=== PATIENT | female | born 1990 | race Caucasian/White ===

== ENCOUNTER → 2018-03-27 15:55 | Outpatient (CLI) | payer BC, SELFPAY ==
[2018-03-27 17:31] LABS: Absolute Lymphocyte Count 1.71 X10^3/ul (0.83-4.51); Absolute Neutrophil Count 7.6 X10^3/uL (2.0-7.7); Basophil# 0.02 X10^3/uL; Basophil% 0.2 % (0-1); Eosinophil# 0.25 X10^3/uL; Eosinophils% 2.5 % (0-5); Hematocrit 38.6 % (37-47); Hemoglobin 13.2 g/dl (12.0-15.0); Lymphocyte # 1.71 X10^3/ul (4.0); Mean Corp Hgb Conc 34.2 g/gl (32-36); Mean Corpuscular Hgb 28.9 pg (27.0-32.0); Mean Corpuscular Volume 84.6 fL (81-99); Monocyte# 0.52 X10^3/uL; Monocyte% 5.2 % (0-10); Neutrophil # 7.55 X10^3/uL (2.7-7.7); Platelet Count 237 K/mm3 (150-450); RBC Distribution Width CV 12.3 % (11.6-14.6); RBC Distribution Width SD 37.8 fl (35.1-43.9); Red Blood Count 4.56 M/mm3 (4.2-5.4); White Blood Count 10.1 K/mm3 (4.4-11.0)
[2018-03-27 17:32] LABS: POSITIVE COUNT NO; POSITIVE DIFFERENTIAL NO; POSITIVE MORPHOLOGY NO
[2018-03-27 17:37] LABS: Color, Urine Yellow (Yellow); Glucose, Dipstick Normal (Normal); Ketone-Dipstick Negative (Negative); Leukocyte Esterase-Dipstick Negative /ul (Negative); Nitrite-Dipstick Negative (Negative); Occult Blood-Urine Negative /ul (Negative); Protein-Dipstick Negative (Negative); Specific Gravity, Urine 1.005 (1.002-1.030); Urine Bilirubin Dipstick Negative (Negative); Urine Clarity Sl. Cloudy (Clear); Urine Urobilinogen Normal (Normal)
[2018-03-27 17:54] LABS: Thyroid Stim Hormone (TSH) 1.54 uIU/mL (0.358-3.74)
[2018-03-27 18:21] LABS: Amphetamine Urine VISTA NEGATIVE (<1000 ng/mL); Barbiturate Urine VISTA NEGATIVE (< 200 ng/mL); Benzodiazepine Urine VISTA NEGATIVE (< 200 ng/mL); Cocaine Urine VISTA NEGATIVE (< 300 ng/mL); Ecstacy Urine VISTA NEGATIVE (< 500 ng/mL); Methadone Urine VISTA NEGATIVE (< 300 ng/mL); PCP Urine VISTA NEGATIVE (< 25 ng/mL); THC Urine VISTA NEGATIVE (< 50 ng/mL); Vista UDS pH Range 6
[2018-03-27 18:46] LABS: HIV - WCH Non-Reactive (Nonreactive); Rubella IgG 149.1 IU/mL
[2018-03-27 19:41] LABS: Chlamydia Trachomatis by PCR Negative (Negative); Neisserai gonorrhoeae by PCR Negative (Negative); Probe Check PASS; Sample Adequacy Control PASS; Specimen Processing Control PASS
[2018-03-29 05:27] LABS: Prenatal RPR NONREACTIVE (NONREACTIVE)
[2018-03-29 08:08] LABS: HEPATITIS B SURFACE AG Negative (Negative); Hep C Antibodies <0.1 s/co ratio (0.0-0.9)
== END ==
PROVIDERS: Visit Provider Obstetrics & Gynecology
DX: Z34.81 Encounter for supervision of other normal pregnancy, first trimester (principal)
CPT/HCPCS: 36415; 80307; 81002; 84443; 85025; 86703; 86762; 86803; 87340; 87491; 87591

== ENCOUNTER → 2018-07-22 08:45 | Outpatient (CLI) | payer BC, SELFPAY ==
[2018-07-22 11:11] LABS: Hematocrit 35.8 % (37-47); Mean Corp Hgb Conc 33.5 g/gl (32-36); Mean Corpuscular Hgb 29.9 pg (27.0-32.0); Mean Corpuscular Volume 89.3 fL (81-99); Mean Platelet Vol. 9.2 fl (6.2-12.0); Platelet Count 233 K/mm3 (150-450); RBC Distribution Width CV 13.2 % (11.6-14.6); RBC Distribution Width SD 42.8 fl (35.1-43.9); Red Blood Count 4.01 M/mm3 (4.2-5.4); White Blood Count 9.3 K/mm3 (4.4-11.0)
[2018-07-22 11:13] LABS: Scan Indicated on CBC? Y/N NO
[2018-07-22 11:14] LABS: Glucose Challenge Gest 1H 50g 137 mg/dL (70-140)
[2018-07-23 11:31] LABS: Hep B Surface Antibodies Reactive (.)
== END ==
PROVIDERS: Visit Provider Obstetrics & Gynecology
DX: Z34.82 Encounter for supervision of other normal pregnancy, second trimester (principal)
CPT/HCPCS: 36415; 82950; 85027; 86706

== ENCOUNTER → 2018-08-12 11:08 | Outpatient (CLI) | payer BC, SELFPAY | PROVIDERS: Visit Provider Obstetrics & Gynecology | DX: R30.0 Dysuria (principal) | CPT/HCPCS: 87086; 87088 ==

== ENCOUNTER → 2018-09-19 10:36 | Outpatient (CLI) | payer BC, SELFPAY | PROVIDERS: Visit Provider Obstetrics & Gynecology | DX: Z36.85 Encounter for antenatal screening for Streptococcus B (principal) | CPT/HCPCS: 87081 ==

== ENCOUNTER 2018-10-16 19:17 | Inpatient (IN) | payer BC, SELFPAY ==
[2018-10-16 12:20] LABS: ROM Internal Control Test YES-OK TO RESULT pt. (Internal QC); ROM Patient Test Negative (Negative)
[2018-10-16 13:11] VITALS: BMI 31.2
[2018-10-16] MEDS: Lactated Ringers 1,000 ML 50 ML IV ×2 (19:40→20:40)
[2018-10-16 20:13] LABS: Absolute Lymphocyte Count 1.28 X10^3/ul (0.83-4.51); Absolute Neutrophil Count 10.3 X10^3/uL (2.0-7.7); Basophil# 0.02 X10^3/uL; Basophil% 0.2 % (0-1); Eosinophil# 0.11 X10^3/uL; Eosinophils% 0.9 % (0-5); Hematocrit 39.4 % (37-47); Hemoglobin 13.9 g/dl (12.0-15.0); Lymphocyte # 1.28 X10^3/ul (4.0); Lymphocyte % 10.2 % (19-41); Mean Corp Hgb Conc 35.3 g/gl (32-36); Mean Corpuscular Hgb 29.3 pg (27.0-32.0); Mean Corpuscular Volume 83.1 fL (81-99); Monocyte# 0.78 X10^3/uL; Monocyte% 6.2 % (0-10); Neutrophil # 10.34 X10^3/uL (2.7-7.7); Neutrophil % 82.2 % (47-70); Platelet Count 241 K/mm3 (150-450); RBC Distribution Width CV 13.3 % (11.6-14.6); RBC Distribution Width SD 39.3 fl (35.1-43.9); Red Blood Count 4.74 M/mm3 (4.2-5.4); White Blood Count 12.6 K/mm3 (4.4-11.0)
[2018-10-16 20:15] LABS: POSITIVE COUNT NO; POSITIVE DIFFERENTIAL NO; POSITIVE MORPHOLOGY NO
[2018-10-16] MEDS: fentaNYL-bupivacaine (epidural) 100 ML BAG EPIDURAL (21:27)
[2018-10-17] MEDS: Lactated Ringers 1,000 ML 50 ML IV ×2 (00:10→02:42)
--- NOTE | 2018-10-17 00:47 | PCM.HP.STD ---
Problem List (1) Active labor at term Status: Acute History of Present Illness Date of Admission: 10/16/18 Chief Complaint: Contractions The patient is a 28 year old F [ at 39w6d ega with regular contractions. Seen earlier today in likely latent phase labor at 3 cm dilation. Represents with cervix dilated to 5 cm. 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 Lives: Spouse/ Significant Other Smoking Status: Former smoker Tobacco Use: Non-smoker Alcohol: None Drugs: None - *Family History Maternal History Items: No pertinent history Paternal History Items: No pertinent history Review of Systems Constitutional: Denies: Chills, Fever, Night Sweats Cardiovascular: Denies: Chest Pressure, Chest Tightness, Edema Respiratory: Denies: Cough, Shortness of Breath Gastrointestinal: Denies: Abdominal Pain, Constipation, Diarrhea Genitourinary: Denies: Dysuria Psychiatric: Denies: Anxiety, Depression VTE Information - Inpt Only VTE Present on Admission: No VTE Mechan Device Prophylaxis: None VTE Pharm Prophylaxis ordered?: No Patient Problems: Active and Suspected Problems Active labor at term (Acute) Subjective: Appears uncomfortable with contractions Objective: Afeb VSS FHR tracing CAT 1. - Physical Exam General: Alert, Oriented x3, Cooperative, No apparent distress Lungs: Clear to auscultation, Normal air movement Cardiovascular: Regular rate, Regular Rhythm Abdomen: Soft, Non Tender, Non-Distended, Gravid, Appropriate for Gestational Age Extremities: No edema Skin: No rashes Neurological: Neuro grossly intact Psych/Mental Status: Normal Affect Comment: CE 80/-2 Weight: 171 lb Body Mass Index (BMI) 31.2 Intake and Output for Last 24 Hours 10/15/18 10/16/18 10/17/18 23:59 23:59 23:59 Intake Total 160 / 160 Balance 160 / 160 Laboratory Tests Past 24 Hrs 10/16/18 10/16/18 10/16/18 11:45 19:40 19:40 WBC 12.6 H RBC 4.74 Hgb 13.9 Hct 39.4 MCV 83.1 MCH 29.3 MCHC 35.3 RDW 13.3 RDW Differential 39.3 Plt Count 241 MPV 10.0 Immature Gran % (Auto) 0.300 Neut % (Auto) 82.2 H Lymph % (Auto) 10.[address] [place] % (Auto) 6.2 Eos % (Auto) 0.9 Baso % (Auto) 0.2 Absolute Neuts (auto) 10.3 H Absolute Lymphs (auto) 1.28 Total Counted Not Reportable Vag Amniotic Fld Detect Negative Blood Type O POSITIVE Antibody Screen NEGATIVE Assessment/Plan All Active Problems Active labor at term (Acute) Admite in active labor. GBS screening negative. Epidural if desired.
--- NOTE | 2018-10-17 00:51 | HP.PCM_ITS ---
Problem List (1) Active labor at term Status: Acute History of Present Illness Date of Admission: 10/16/18 Chief Complaint: Contractions The patient is a 28 year old F [ at 39w6d ega with regular contractions. Seen earlier today in likely latent phase labor at 3 cm dilation. Represents with cervix dilated to 5 cm. 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 Lives: Spouse/ Significant Other Smoking Status: Former smoker Tobacco Use: Non-smoker Alcohol: None Drugs: None - *Family History Maternal History Items: No pertinent history Paternal History Items: No pertinent history Review of Systems Constitutional: Denies: Chills, Fever, Night Sweats Cardiovascular: Denies: Chest Pressure, Chest Tightness, Edema Respiratory: Denies: Cough, Shortness of Breath Gastrointestinal: Denies: Abdominal Pain, Constipation, Diarrhea Genitourinary: Denies: Dysuria Psychiatric: Denies: Anxiety, Depression VTE Information - Inpt Only VTE Present on Admission: No VTE Mechan Device Prophylaxis: None VTE Pharm Prophylaxis ordered?: No Patient Problems: Active and Suspected Problems Active labor at term (Acute) Subjective: Appears uncomfortable with contractions Objective: Afeb VSS FHR tracing CAT 1. - Physical Exam General: Alert, Oriented x3, Cooperative, No apparent distress Lungs: Clear to auscultation, Normal air movement Cardiovascular: Regular rate, Regular Rhythm Abdomen: Soft, Non Tender, Non-Distended, Gravid, Appropriate for Gestational Age Extremities: No edema Skin: No rashes Neurological: Neuro grossly intact Psych/Mental Status: Normal Affect Comment: CE 80/-2 Weight: 171 lb Body Mass Index (BMI) 31.2 Intake and Output for Last 24 Hours 10/15/18 10/16/18 10/17/18 23:59 23:59 23:59 Intake Total 160 / 160 Balance 160 / 160 Laboratory Tests Past 24 Hrs 10/16/18 10/16/18 10/16/18 11:45 19:40 19:40 WBC 12.6 H RBC 4.74 Hgb 13.9 Hct 39.4 MCV 83.1 MCH 29.3 MCHC 35.3 RDW 13.3 RDW Differential 39.3 Plt Count 241 MPV 10.0 Immature Gran % (Auto) 0.300 Neut % (Auto) 82.2 H Lymph % (Auto) 10.2 L [place] % (Auto) 6.2 Eos % (Auto) 0.9 Baso % (Auto) 0.2 Absolute Neuts (auto) 10.3 H Absolute Lymphs (auto) 1.28 Total Counted Not Reportable Vag Amniotic Fld Detect Negative Blood Type O POSITIVE Antibody Screen NEGATIVE Assessment/Plan All Active Problems Active labor at term (Acute) Admite in active labor. GBS screening negative. Epidural if desired.
[2018-10-17] MEDS: fentaNYL-bupivacaine (epidural) 100 ML BAG EPIDURAL (02:07)
[2018-10-17] MEDS: Mag Hydrox/Al Hydrox/Simeth 30 ML UDC PO (02:43)
[2018-10-17] MEDS: Oxytocin 30 units/NS 500 ml 30 UNITS/500 ML IV.SOLN 334 UNITS IV (04:15)
--- NOTE | 2018-10-17 04:42 | OP.PCM_ITS ---
Problem List (1) Active labor at term Status: Acute Vaginal Delivery Maternal Presentation: Active Labor 39w6d ega in active labor Amniotic Membrane Rupture Type: Artificial Rupture of Membrane time: 0030 Amniotic Fluid Description: Clear Final BOBBI: 10/17/18 Final BOBBI Source: US <20 weeks Gestational age: 40 Weeks and 0 Days Date of Procedure: 10/17/18 Pre-Operative Diagnosis: labor Post-Operative Diagnosis: same Surgery/ Procedure Performed: Vacuum Assisted Vaginal Delivery Anesthesiologist: Chris Jaime Type of Anesthesia: Epidural Description of Procedure: Jackie presented in active labor with cervix dilated to 5 cm. she progressed to FD then pushed for about 2 1/2 hours to bring head to +2 station. Due to maternal fatigue and some deep prolonged heart rate decelerations decision was made to assist the delivery with the Kiwi vacuum device. The device was placed and check for positioning. Over three contractions with steady traction during each contraction the head was brought to the perineum then easily delivered. The cord was immediately cut and the baby taken to the warmer for evaluation by the medical insurance claims specialist. The placenta delivered spontaneously intact with a centrally located 3VC. The uterus contracted well. The cervix and upper vagina and perineum were intact. A small posterior vaginal first degree tear was repaired with 2-0 Vicryl. APGARs were unavailable at the time of this note. Presentation: Vertex, LOP Placental Delivery Description: Spontaneous Placenta Disposition: [facility] Percentage of Placenta Abruption: 0 Cord Vessel Description: 3 Vessels Nuchal Cord Compression: With compression Cord Entanglement: Around neck x 1, loose Drain: Hanna to straight drain Estimated Blood Loss: 300cc A gender: Male Episiotomy Description: None Laceration: Midline, Vaginal Extension/lac, 1st degree Medications given after delivery: IV Pitocin Complications: None
[2018-10-17] MEDS: Oxytocin 30 units/NS 500 ml 30 UNITS/500 ML IV.SOLN 167 UNITS IV (04:45)
--- NOTE | 2018-10-17 04:45 | DCINST_ITS ---
Discharge Diet: No Restrictions Discharge Activity: Return to Normal Activity, May Drive, May Shower Return to work on:: 12/16/18 May resume sexual activity in: 6 weeks Call your doctor if your incision/area has: Sudden Increased Bleeding, Increased Pain/ Swelling, Increased Redness, Foul Smelling Discharge Call your doctor if you observe: Fever of 101 or Higher, Inability to urinate, Inability to have a bowel movement, Using more than one pad per hour, Shortness of breath, Chest pain, Calf discomfort, Uncontrolled pain Cleanse incision/area with: Soap & Water Additional Instructions: If you experience any of the following, contact your healthcare provider. * Bleeding that soaks a pad every hour for 2 hours * Fever 100.4 or higher * Unrelieved incision or abdominal pain * Swelling, redness, discharge or bleeding from your incision or episiotomy site * Your incision begins to separate * Problems urinating (including inability to urinate or burning while urinating). * Visual changes * Severe headache * Flu-like symptoms * Pain or redness in one of both of your breasts * Pain, warmth, tenderness or swelling in your legs, especially the calf area * Frequent nausea and vomiting * Symptoms of depression or anxiety If you experience any of the following, call 911 or go to the nearest Emergency Room. * Chest pain * Problems breathing * Seizure activity * Partial or complete paralysis of a body part, slurred speech, weakness or drooping of the face, or a sudden inability to walk or hold your balance Allergies/Adverse Reactions: Allergies Sulfa (Sulfonamide Antibiotics) Allergy (Verified 10/16/18 20:08) Anaphylaxis latex Adverse Reaction (Verified 10/16/18 20:08) Rash quetiapine [From Seroquel] Adverse Reaction (Verified 10/16/18 20:08) Other seizure venlafaxine [From Effexor] Adverse Reaction (Verified 10/16/18 20:08) Rash Medications to take at Discharge Vit,Calc76/Iron/Folic [Pnv 29-1 Tablet] 1 tab PO DAILY 10/16/18 Ibuprofen [Motrin] 600 mg PO Q6H PRN PRN #30 tab 10/17/18 The following prescriptions were given: Ibuprofen [Motrin] 600 mg PO Q6H PRN PRN #30 tab PRN Reason: pain or cramping Please Follow Up With: Teri Martinez MD When: 6 weeks Primary Care Physician: Care Physician,No Primary [Primary Care Provider] - Test Results: Test results from this visit will be discussed in further detail at your follow- up appointment, if applicable. Proposed Discharge Date: 10/19/18
[2018-10-17] MEDS: Ibuprofen 600 MG Tablet PO ×2 (07:56→14:10)
[2018-10-17 08:00] VITALS: BP 123/74; PULSE 90; RESP 16; TEMP 36.6
--- NOTE | 2018-10-17 12:18 | PN.OBGYN_ITS ---
Patient Problems: Active and Suspected Problems Active labor at term (Acute) Subjective: Feels well. Bleeding food cooking machine operator. Objective: Afeb VSS - Physical Exam General: Alert, Oriented x3, Cooperative, No apparent distress Lungs: Clear to auscultation, Normal air movement Cardiovascular: Regular rate, Regular Rhythm Abdomen: Soft, Non Tender, Non-Distended Extremities: No edema Skin: No rashes Neurological: Neuro grossly intact Psych/Mental Status: Normal Affect Comment: Lochia appropriate Vital Signs Temp Pulse Resp BP 97.9 F 90 16 123/74 H 10/17/18 08:00 10/17/18 08:00 10/17/18 08:00 10/17/18 08:00 Oxygen Delivery Method Room Air Weight: 171 lb Body Mass Index (BMI) 31.2 Intake and Output for Last 24 Hours 10/15/18 10/16/18 10/17/18 23:59 23:59 23:59 Intake Total 160 / 160 3841 / 3841 Output Total 2450 / 2450 Balance 160 / 160 1391 / 1391 Laboratory Tests Past 24 Hrs 10/16/18 10/16/18 10/16/18 11:45 19:40 19:40 WBC 12.6 H RBC 4.74 Hgb 13.9 Hct 39.4 MCV 83.1 MCH 29.3 MCHC 35.3 RDW 13.3 RDW Differential 39.3 Plt Count 241 MPV 10.0 Immature Gran % (Auto) 0.300 Neut % (Auto) 82.2 H Lymph % (Auto) 10.2 L [place] % (Auto) 6.2 Eos % (Auto) 0.9 Baso % (Auto) 0.2 Absolute Neuts (auto) 10.3 H Absolute Lymphs (auto) 1.28 Total Counted Not Reportable Vag Amniotic Fld Detect Negative Blood Type O POSITIVE Antibody Screen NEGATIVE Medical Necessity - Tobacco Use Smoking Status: Former smoker Tobacco Use: Non-smoker Assessment/Plan All Active Problems Active labor at term (Acute) Would like early discharge after VAVD due to baby being transfered to [facility]. I feel it is safe for her to be discharged home. Home going instructions and warnings given.
--- NOTE | 2018-10-17 12:18 | PCM.DC.SUM ---
Discharge Date and Diagnosis - Problem List Patient Problems: Active and Suspected Problems Active labor at term (Acute) Date of Admission: 10/16/18 Date of Discharge: 10/17/18 - Primary Discharge Diagnosis Active and Suspected Problems Active labor at term (Acute), Hospital Course and Treatment Operations: None Procedures: - - Epidural, Vacuum Assisted Vaginal Delivery Summary of Care Provided: The patient is a 28 year old F admitted at 39w6d [facility] in active labor. Progressed to then pushed for 2 1/2 hours to deliver a live male . Baby had slow recovery and was observed for respiratory issues. Baby was then transfered to [facility] [place] for observation. Patient was discharged on day#0 as desired to be close to baby. [] Patient Problems: Active and Suspected Problems Active labor at term (Acute) - Physical Exam Vital Signs Temp Pulse Resp BP 97.9 F 90 16 123/74 H 10/17/18 08:00 10/17/18 08:00 10/17/18 08:00 10/17/18 08:00 Oxygen Delivery Method Room Air Weight: 171 lb Body Mass Index (BMI) 31.2 Intake and Output for Last 24 Hours 10/15/18 10/16/18 10/17/18 23:59 23:59 23:59 Intake Total 160 / 160 3841 / 3841 Output Total 2450 / 2450 Balance 160 / 160 1391 / 1391 Laboratory Tests Past 24 Hrs 10/16/18 10/16/18 10/16/18 11:45 19:40 19:40 WBC 12.6 H RBC 4.74 Hgb 13.9 Hct 39.4 MCV 83.1 MCH 29.3 MCHC 35.3 RDW 13.3 RDW Differential 39.3 Plt Count 241 MPV 10.0 Immature Gran % (Auto) 0.300 Neut % (Auto) 82.2 H Lymph % (Auto) 10.2 L [place] % (Auto) 6.2 Eos % (Auto) 0.9 Baso % (Auto) 0.2 Absolute Neuts (auto) 10.3 H Absolute Lymphs (auto) 1.28 Total Counted Not Reportable Vag Amniotic Fld Detect Negative Blood Type O POSITIVE Antibody Screen NEGATIVE Discharge Diet: No Restrictions Discharge Activity: Return to Normal Activity, May Drive, May Shower Return to work on:: 12/16/18 May resume sexual activity in: 6 weeks Call your doctor if your incision/area has: Sudden Increased Bleeding, Increased Pain/ Swelling, Increased Redness, Foul Smelling Discharge Call your doctor if you observe: Fever of 101 or Higher, Inability to urinate, Inability to have a bowel movement, Using more than one pad per hour, Shortness of breath, Chest pain, Calf discomfort, Uncontrolled pain Cleanse incision/area with: Soap & Water Home Medications: Medications to take at Discharge Vit,Calc76/Iron/Folic [Pnv 29-1 Tablet] 1 tab PO DAILY 10/16/18 Ibuprofen [Motrin] 600 mg PO Q6H PRN PRN #30 tab 10/17/18 Following Prescrptions Were Given to Patient: Ibuprofen [Motrin] 600 mg PO Q6H PRN PRN #30 tab PRN Reason: pain or cramping Primary Care Physician: Care Physician,No Primary [Primary Care Provider] - Please Follow Up With: Teri Martinez MD When: 6 weeks Disposition: Home Minutes spent on discharge:: 15 Patient Condition:: Good Medical Necessity - Tobacco Use Smoking Status: Former smoker Tobacco Use: Non-smoker Meaningful Use Info Meaningful Use Diagnoses (Choose all that apply): None applicable
[2018-10-17 12:54] VITALS: BP 127/75; PULSE 92; RESP 16; TEMP 37.3
[2018-10-17] MEDS: Prenatal Vits Tablet 1 TABLET PO (14:11)
--- NOTE | 2018-10-23 18:15 | NURSING ---
No answer on follow up phone call , left message
== END 2018-10-17 14:25 | disposition home or self-care (01) | DRG 807 ==
LOC: WP 19:50 → OBT 19:50
PROVIDERS: Admitting Provider Obstetrics & Gynecology; Referring Provider Obstetrics & Gynecology; Visit Provider Obstetrics & Gynecology
DX: O75.81 Maternal exhaustion complicating labor and delivery (principal); O76 Abnormality in fetal heart rate and rhythm complicating labor and delivery; O70.0 First degree perineal laceration during delivery; O69.81X0 Labor and delivery complicated by cord around neck, without compression, not applicable or unspecified; Z87.891 Personal history of nicotine dependence; Z3A.39 39 weeks gestation of pregnancy; Z37.0 Single live birth
CPT/HCPCS: 59025; 59050; 84112; 85025; 86850; 86900; 99218; J7120; G0378